=== PATIENT | male | born 1980 | race Caucasian/White ===

== ENCOUNTER 2017-08-11 17:03 | Emergency (ER) | payer SELFPAY ==
[~2017-08-11] VITALS: Ht 175.3 cm; Wt 90.8 kg
[~2017-08-11 17:03] MED LIST: BACTRIM DS1 TAB PO
[2017-08-11] MEDS ORDERED: BACTRIM DS1 TAB PO (18:26)
[2017-08-11 18:51] VITALS: BP 128/86
== END 2017-08-11 19:00 | disposition home or self-care (01) | DRG 603 ==
LOC: ED 17:03
DX: L02.413 Cutaneous abscess of right upper limb (principal)

== ENCOUNTER 2017-10-18 12:29 | Emergency (ER) | payer SELFPAY ==
[~2017-10-18] VITALS: Ht 175.3 cm; Wt 68.4 kg
[2017-10-18 13:31] LABS: URINE BILIRUBIN - DIPSTICK NEGATIVE (NEGATIVE); URINE BLOOD DIPSTICK SMALL (NEGATIVE); URINE COLOR YELLOW; URINE GLUCOSE - DIPSTICK NEGATIVE (NEGATIVE); URINE KETONE NEGATIVE (NEGATIVE); URINE NITRITE - DIPSTICK NEGATIVE (Negative); URINE PROTEIN - DIPSTICK 30 mg/dL (NEG-TRACE); URINE SPECIFIC GRAVITY >=1.030; URINE UROBILINOGEN - DIPSTICK 0.2 E.U./dL (0.2)
[2017-10-18 13:32] LABS: URINE CLARITY CLOUDY; URINE LEUK ESTERASE MODERATE (NEGATIVE)
[2017-10-18 13:39] LABS: URINE SPERM RARE hpf (NONE-RARE); URINE WBC 50-100 WBC/hpf (0-5)
[2017-10-18] MEDS ORDERED: DOXYCYC MONO100 M1 PO (15:26)
[2017-10-18 15:40] VITALS: BP 131/84
== END 2017-10-18 15:40 | disposition home or self-care (01) | DRG 728 ==
LOC: ED 12:29
PROVIDERS: Emergency Medicine
DX: A64 Unspecified sexually transmitted disease (principal); N39.0 Urinary tract infection, site not specified; F17.210 Nicotine dependence, cigarettes, uncomplicated

== ENCOUNTER 2017-10-29 15:12 | Emergency (ER) | payer SELFPAY ==
[~2017-10-29] VITALS: Ht 175.3 cm; Wt 70.0 kg
[~2017-10-29 15:12] MED LIST changes: +DOXYCYC MONO100 M1 PO
[2017-10-29] MEDS ORDERED: PRE-NATAL PO (15:59)
[2017-10-29] MEDS ORDERED: ANTIBIOTIC (16:02)
[2017-10-29] MEDS ORDERED: TRAMADOL HYDROC50 MG PO (16:29)
[2017-10-29] MEDS ORDERED: AUGMENTIN875TAB PO (16:29)
[2017-10-29] MEDS ORDERED: IBUPROFEN600 MG PO (16:29)
[2017-10-29 16:55] VITALS: BP 157/96
== END 2017-10-29 16:55 | disposition home or self-care (01) | DRG 605 ==
LOC: ED 15:12
PROC: 0HQBXZZ Repair Right Upper Arm Skin, External Approach (ICD-10-PCS; principal; 2017-10-29)
DX: S41.151A Open bite of right upper arm, initial encounter (principal); F17.210 Nicotine dependence, cigarettes, uncomplicated; W54.0XXA Bitten by dog, initial encounter

== ENCOUNTER 2018-04-06 22:08 | Emergency (ER) | payer SELFPAY ==
[~2018-04-06] VITALS: Ht 177.8 cm; Wt 68.2 kg
[~2018-04-06 22:08] MED LIST changes: +ANTIBIOTIC; +AUGMENTIN875TAB PO; +IBUPROFEN600 MG PO; +PRE-NATAL PO; +TRAMADOL HYDROC50 MG PO
[2018-04-06 23:01] LABS: HEMATOCRIT 43.4 % (39.0-50.0); HEMOGLOBIN 14.8 g/dl (14.0-18.0); IMMATURE GRANULOCYTES 0.4 % (0.0-5.0); MEAN CELL VOLUME 87.5 fL CALC (80.0-100.0); MEAN CORPUSCULAR HGB 29.8 pG CALC (26.0-32.0); MEAN CORPUSCULAR HGB CONC 34.1 g/L CALC (32.0-36.0); NEUT# 9.27 thou/uL (1.82-7.42); RED BLOOD COUNT 4.96 mill/uL (4.70-6.10); RED CELL DISTRI WIDTH 12.1 % (11.5-15.5)
[2018-04-06 23:02] LABS: URINE BILIRUBIN - DIPSTICK NEGATIVE (NEGATIVE); URINE BLOOD DIPSTICK LARGE (NEGATIVE); URINE COLOR YELLOW; URINE GLUCOSE - DIPSTICK NEGATIVE (NEGATIVE); URINE KETONE NEGATIVE (NEGATIVE); URINE LEUK ESTERASE NEGATIVE (NEGATIVE); URINE NITRITE - DIPSTICK NEGATIVE (Negative); URINE PROTEIN - DIPSTICK 30 mg/dL (NEG-TRACE); URINE SPECIFIC GRAVITY >=1.030
[2018-04-06 23:04] LABS: URINE CLARITY SL CLOUDY
[2018-04-06 23:13] LABS: AMYLASE 121 u/l (30-110); LIPASE 103 u/l (23-300)
[2018-04-06 23:14] LABS: ALBUMIN 4.5 g/dL (3.2-5.0); ALKALINE PHOSPHATASE 96 u/l (38-126); ANION GAP 16 (6-22 (CALC)); BILIRUBIN, TOTAL 0.8 mg/dL (0.0-1.4); BUN 12 mg/dL (9-20); BUN/CREATININE RATIO 9 (12-20 (CALC)); CARBON DIOXIDE 29 mmol/l (22-30); CHLORIDE 101 mmol/l (95-108); CREATININE 1.4 mg/dL (0.7-1.3); GFR 57 ML/MIN (>=60 (CALC)); GFR FOR AFR.AMER. > 60 ML/MIN (>=60 (CALC)); POTASSIUM 4.1 mmol/l (3.5-5.1); SGOT/AST 53 u/l (17-59); SGPT/ALT 98 u/l (21-72); SODIUM 142 mmol/l (137-146); TOTAL PROTEIN 8.5 g/dL (6.3-8.2)
[2018-04-06 23:16] LABS: URINE BACTERIA FEW hpf; URINE CALCIUM OXALATE CRYSTALS MANY lpf; URINE MUCUS FEW hpf (NONE-FEW); URINE SQUAMOUS EPITHELIAL CELL MANY EPI/hpf (0-FEW)
[2018-04-07] MEDS ORDERED: ZOFRAN ODT4 MG PO (00:40)
[2018-04-07] MEDS ORDERED: LORTAB 1010 MG PO (00:40)
[2018-04-07 01:04] VITALS: BP 132/71
== END 2018-04-07 01:05 | disposition home or self-care (01) | DRG 694 ==
LOC: ED 22:08
PROVIDERS: Emergency Medicine
DX: N20.0 Calculus of kidney (principal); F17.210 Nicotine dependence, cigarettes, uncomplicated

== ENCOUNTER 2018-06-20 16:08 | Emergency (ER) | payer SELFPAY ==
[~2018-06-20] VITALS: Ht 177.8 cm; Wt 65.0 kg
[~2018-06-20 16:08] MED LIST changes: +LORTAB 1010 MG PO; +ZOFRAN ODT4 MG PO
[2018-06-20] MEDS ORDERED: IBUPROFEN600 MG PO (16:41)
[2018-06-20] MEDS ORDERED: AMOXICILLIN875 MG PO (16:41)
[2018-06-20 16:50] VITALS: BP 154/87
== END 2018-06-20 16:50 | disposition home or self-care (01) | DRG 158 ==
LOC: ED 16:08
DX: K04.7 Periapical abscess without sinus (principal); K02.9 Dental caries, unspecified; M84.68XA Pathological fracture in other disease, other site, initial encounter for fracture; F17.210 Nicotine dependence, cigarettes, uncomplicated

== ENCOUNTER 2019-12-12 | Emergency (ER) | payer SELFPAY ==
[~2019-12-12] MED LIST changes: +AMOXICILLIN875 MG PO
[2019-12-13 01:03] LABS: URINE BILIRUBIN - DIPSTICK NEGATIVE (NEGATIVE); URINE BLOOD DIPSTICK TRACE-INTACT (NEGATIVE); URINE COLOR YELLOW; URINE GLUCOSE - DIPSTICK NEGATIVE (NEGATIVE); URINE KETONE NEGATIVE (NEGATIVE); URINE LEUK ESTERASE LARGE (Negative); URINE NITRITE - DIPSTICK NEGATIVE (Negative); URINE PROTEIN - DIPSTICK NEGATIVE (NEG-TRACE); URINE SPECIFIC GRAVITY 1.015
[2019-12-13 01:07] LABS: URINE CLARITY TURBID
[2019-12-13 01:08] LABS: URINE BACTERIA FEW hpf; URINE EPITHELIAL CELLS FEW EPI/hpf (0-FEW); URINE RBC 0-2 RBC/hpf (0-5)
[2019-12-13] MEDS ORDERED: KEFLEX500 M1 PO ×2 (01:44)
== END 2019-12-13 02:19 | disposition home or self-care (01) | DRG 690 ==
PROVIDERS: Emergency Medicine
DX: N39.0 Urinary tract infection, site not specified (principal); S51.831A Puncture wound without foreign body of right forearm, initial encounter; F17.200 Nicotine dependence, unspecified, uncomplicated; W45.0XXA Nail entering through skin, initial encounter; Y92.89 Other specified places as the place of occurrence of the external cause; Y99.0 Civilian activity done for income or pay

== ENCOUNTER 2020-05-30 16:56 | Emergency (ER) | payer SELFPAY ==
[~2020-05-30] VITALS: Ht 177.8 cm; Wt 85.0 kg
[~2020-05-30 16:56] MED LIST changes: +KEFLEX500 M1 PO
[2020-05-30] MEDS ORDERED: KEFLEX500 M1 PO (18:58)
[2020-05-30] MEDS ORDERED: IBUPROFEN600 MG PO (18:58)
[2020-05-30 19:30] VITALS: BP 130/80
== END 2020-05-30 19:30 | disposition home or self-care (01) | DRG 603 ==
LOC: ED 16:56
DX: L03.116 Cellulitis of left lower limb (principal); L03.115 Cellulitis of right lower limb; F17.210 Nicotine dependence, cigarettes, uncomplicated

== ENCOUNTER 2020-06-01 13:36 | Emergency (ER) | payer SELFPAY ==
[~2020-06-01] VITALS: Ht 177.8 cm; Wt 70.0 kg
[2020-06-01] MEDS ORDERED: CEPHALEXIN500 M1 PO (16:32)
[2020-06-01] MEDS ORDERED: BACTRIM DS1 TAB PO (16:32)
[2020-06-01 16:35] VITALS: BP 129/74
== END 2020-06-01 16:35 | disposition home or self-care (01) | DRG 603 ==
LOC: ED 13:36
DX: L03.116 Cellulitis of left lower limb (principal); L03.115 Cellulitis of right lower limb; S90.811A Abrasion, right foot, initial encounter; F17.200 Nicotine dependence, unspecified, uncomplicated; X58.XXXA Exposure to other specified factors, initial encounter

== ENCOUNTER 2020-08-08 15:09 | Emergency (ER) | payer SELFPAY ==
[~2020-08-08] VITALS: Ht 177.8 cm; Wt 72.0 kg
[~2020-08-08 15:09] MED LIST changes: +CEPHALEXIN500 M1 PO
[2020-08-08 16:26] LABS: HEMATOCRIT 41.7 % (39.0-50.0); HEMOGLOBIN 13.9 g/dl (14.0-18.0); IMMATURE GRANULOCYTES 0.5 % (0.0-5.0); MEAN CELL VOLUME 87.4 fL CALC (80.0-100.0); MEAN CORPUSCULAR HGB 29.1 pG CALC (26.0-32.0); MEAN CORPUSCULAR HGB CONC 33.3 g/dL CAL (32.0-36.0); NEUT# 14.23 thou/uL (1.82-7.42); RED BLOOD COUNT 4.77 mill/uL (4.70-6.10); RED CELL DISTRI WIDTH 11.9 % (11.5-15.5)
[2020-08-08 16:47] LABS: ALKALINE PHOSPHATASE 102 u/l (38-126); ANION GAP 12 (6-22 (CALC)); BUN 10 mg/dL (9-20); BUN/CREATININE RATIO 13 (12-20 (CALC)); CARBON DIOXIDE 26 mmol/l (22-30); CHLORIDE 102 mmol/l (95-108); CREATININE 0.8 mg/dL (0.7-1.3); GFR > 60 ML/MIN (>=60 (CALC)); GFR FOR AFR.AMER. > 60 ML/MIN (>=60 (CALC)); POTASSIUM 4.4 mmol/l (3.5-5.1); SGOT/AST 48 u/l (17-59); SODIUM 135 mmol/l (137-146); TOTAL PROTEIN 7.8 g/dL (6.3-8.2)
[2020-08-08 16:51] LABS: BILIRUBIN, TOTAL 0.3 mg/dL (0.0-1.4)
[2020-08-08] MEDS ORDERED: IBUPROFEN600 MG PO (18:17)
[2020-08-08] MEDS ORDERED: NORCO1 TA1 PO ×2 (18:17→18:35)
[2020-08-08] MEDS ORDERED: DOXYCYCL HYC100 MG PO (18:17)
[2020-08-08 18:48] LABS: URINE BILIRUBIN - DIPSTICK NEGATIVE (NEGATIVE); URINE BLOOD DIPSTICK NEGATIVE (NEGATIVE); URINE COLOR YELLOW; URINE GLUCOSE - DIPSTICK NEGATIVE (NEGATIVE); URINE KETONE NEGATIVE (NEGATIVE); URINE LEUK ESTERASE NEGATIVE (NEGATIVE); URINE NITRITE - DIPSTICK NEGATIVE (Negative); URINE PROTEIN - DIPSTICK NEGATIVE (NEG-TRACE); URINE UROBILINOGEN - DIPSTICK 0.2 E.U./dL (0.2)
[2020-08-08 19:20] VITALS: BP 129/68
== END 2020-08-08 19:20 | disposition home or self-care (01) | DRG 728 ==
LOC: ED 15:09
PROVIDERS: Student in an Organized Health Care Education/Training Program
DX: N45.1 Epididymitis (principal); N34.0 Urethral abscess; F17.200 Nicotine dependence, unspecified, uncomplicated
CPT/HCPCS: Q9967

== ENCOUNTER 2021-03-25 19:13 | Emergency (ER) | payer SELFPAY ==
[~2021-03-25] VITALS: Ht 154.9 cm; Wt 72.0 kg
[~2021-03-25 19:13] MED LIST changes: +DOXYCYCL HYC100 MG PO; +NORCO1 TA1 PO
[2021-03-25] MEDS ORDERED: KEFLEX500 MG PO (19:58)
[2021-03-25 20:08] VITALS: BP 123/76
== END 2021-03-25 20:08 | disposition home or self-care (01) | DRG 603 ==
LOC: ED 19:13
DX: L03.116 Cellulitis of left lower limb (principal); F17.200 Nicotine dependence, unspecified, uncomplicated

== ENCOUNTER 2022-01-10 00:19 | Emergency (ER) | payer SELFPAY ==
[~2022-01-10] VITALS: Ht 185.4 cm; Wt 77.0 kg
[~2022-01-10 00:19] MED LIST changes: +KEFLEX500 MG PO
[2022-01-10 01:20] VITALS: BP 126/76
== END 2022-01-10 01:20 | disposition home or self-care (01) | DRG 605 ==
LOC: ED 00:19
PROC: 0HQNXZZ Repair Left Foot Skin, External Approach (ICD-10-PCS; principal; 2022-01-10)
DX: S91.012A Laceration without foreign body, left ankle, initial encounter (principal); W45.8XXA Other foreign body or object entering through skin, initial encounter; Y93.01 Activity, walking, marching and hiking; Y92.821 Forest as the place of occurrence of the external cause

== ENCOUNTER 2022-04-08 12:46 | Emergency (ER) | payer SELFPAY ==
[~2022-04-08] VITALS: Ht 185.4 cm; Wt 90.9 kg
[2022-04-08 12:55] VITALS: BP 136/88
== END 2022-04-08 13:11 | disposition home or self-care (01) | DRG 951 ==
LOC: ED 12:46 → LWOBS 13:11
DX: Z53.21 Procedure and treatment not carried out due to patient leaving prior to being seen by health care provider (principal)

== ENCOUNTER 2022-09-18 21:02 | Emergency (ER) | payer SELFPAY ==
[~2022-09-18] VITALS: Ht 185.4 cm; Wt 77.0 kg
[2022-09-19] MEDS ORDERED: NAPROXEN500 MG PO (00:57)
[2022-09-19] MEDS ORDERED: AMOXICILLIN500 MG PO (00:57)
[2022-09-19 01:33] VITALS: BP 131/70
== END 2022-09-19 01:33 | disposition home or self-care (01) | DRG 159 ==
LOC: ED 21:02
DX: K02.9 Dental caries, unspecified (principal)

== ENCOUNTER 2023-04-24 01:13 | Emergency (ER) | payer SELFPAY ==
[~2023-04-24] VITALS: Ht 185.4 cm; Wt 77.0 kg
[~2023-04-24 01:13] MED LIST changes: +AMOXICILLIN500 MG PO; +NAPROXEN500 MG PO
[2023-04-24] MEDS ORDERED: VIBRAMYCIN100 M2 PO (01:29)
[2023-04-24 01:30] VITALS: BP 132/88
[2023-04-24 01:45] VITALS: BP 132/87
[2023-04-24 02:00] VITALS: BP 133/87
[2023-04-24 02:15] VITALS: BP 128/84
[2023-04-24 02:30] VITALS: BP 134/84
[2023-04-24 02:31] VITALS: BP 134/84
== END 2023-04-24 02:52 | disposition home or self-care (01) | DRG 603 ==
LOC: ED 01:13
DX: L03.221 Cellulitis of neck (principal); F17.200 Nicotine dependence, unspecified, uncomplicated